=== PATIENT | female | born 1995 | race Caucasian/White ===

== ENCOUNTER 2017-10-08 13:01 | Outpatient (CLI) | payer MEDICAID | END 2017-10-08 15:11 | disposition home or self-care (01) | LOC: M LDO 13:01 | DX: O26.893 Other specified pregnancy related conditions, third trimester (principal); N89.8 Other specified noninflammatory disorders of vagina; O47.1 False labor at or after 37 completed weeks of gestation; Z3A.38 38 weeks gestation of pregnancy | CPT/HCPCS: 76815 ==

== ENCOUNTER 2017-10-13 11:00 | Outpatient (CLI) | payer MEDICAID | END 2017-10-13 13:25 | disposition home or self-care (01) | LOC: M LDO 11:00 | DX: O47.1 False labor at or after 37 completed weeks of gestation (principal); Z3A.38 38 weeks gestation of pregnancy | CPT/HCPCS: 59025 ==

== ENCOUNTER 2017-10-16 07:06 | Inpatient (IN) | payer MEDICAID ==
[2017-10-16] MEDS: miSOPROStol 50 MCG 1/2 TAB (S0191) SL (09:42)
[2017-10-16 10:00] LABS: HEMATOCRIT 31.8 % (36.0-47.0); HEMOGLOBIN 10.7 g/dl (12.0-15.5); MEAN CORPUSCULAR HEMOGLOBIN 34.6 pg (27.0-33.0); MEAN CORPUSCULAR HGB CONC 33.6 g/dl (32.0-36.5); MEAN CORPUSCULAR VOLUME 102.9 fl (80.0-96.0); PLATELET COUNT, AUTOMATED 164 10^3/uL (150-450); RED BLOOD COUNT 3.09 10^6/uL (4.00-5.40); RED CELL DISTRIBUTION WIDTH 15.4 % (11.5-14.5); WHITE BLOOD COUNT 6.2 10^3/uL (4.0-10.0)
[2017-10-16 10:44] LABS: HBSAG L&D NEGATIVE (NEGATIVE)
[2017-10-16] MEDS: LACTATED RINGER'S 1000 ML IV (17:32)
[2017-10-16] MEDS ORDERED: FENTANYL 2MCG/ML ROPIVACAINE 0.2% IN 0.9% NACL 200ML IVBAG As Ordered (18:20)
[2017-10-16] MEDS ORDERED: diphenhydrAMINE INJ 50MG/ML VIAL (J1200) IV (19:30)
[2017-10-16] MEDS ORDERED: ONDANSETRON 4MG/2ML VIAL (J2405) IV (19:30)
[2017-10-16] MEDS ORDERED: LACTATED RINGER'S 1000 ML IV (19:30)
[2017-10-16] MEDS ORDERED: REFRIGERATOR IV KEYS XX (19:30)
[2017-10-16] MEDS ORDERED: FENTANYL/ROPIVACAINE/NACL BAG 200 ML EPIDURAL (19:30)
[2017-10-16] MEDS ORDERED: NALOXONE INJ 0.4 MG/1 ML VIAL (J2310) IV (19:30)
[2017-10-16] MEDS ORDERED: EPIDURAL/PCA KEYS XX (19:30)
[2017-10-16] MEDS ORDERED: EPIDURAL COMMENT XX (19:30)
[2017-10-16] MEDS: LR 1,000 ML IV (20:11)
[2017-10-16] MEDS: OXYTOCIN DRIP 30 UNITS in APPROPRIATE DILUENT 1 EA IV (20:44)
[2017-10-16] MEDS: ePHEDrine SULFATE 25 MG/5 ML(5MG/ML) SYRINGE IV (21:57)
[2017-10-17] MEDS ORDERED: METHYLERGONOVINE MALEATE 0.2 MG TAB PO
[2017-10-17] MEDS ORDERED: MEASLES,MUMPS,RUBELLA VACCINE INJ (MMR-II) (90707) SC
[2017-10-17] MEDS ORDERED: RHOGAM 300 MCG (1500 IU) INJ (J2790) IM
[2017-10-17] MEDS ORDERED: DIBUCAINE 1% OINTMENT 30GM TOP
[2017-10-17] MEDS ORDERED: ONDANSETRON 4MG/2ML VIAL (J2405) IV
[2017-10-17] MEDS ORDERED: DOCUSATE SODIUM 100 MG CAP PO
[2017-10-17] MEDS: OXYTOCIN DRIP 30 UNITS in APPROPRIATE DILUENT 1 EA IV (02:24)
[2017-10-17] MEDS: IBUPROFEN 800 MG TAB PO ×2 (06:38→14:47)
[2017-10-17] MEDS: PRENATAL VITAMINS CHEWABLE TABLET PO (08:35)
[2017-10-17] MEDS: ACETAMINOPHEN 500 MG TAB PO ×2 (08:55→21:06)
[2017-10-18] MEDS: PRENATAL VITAMINS CHEWABLE TABLET PO (07:34)
[2017-10-18] MEDS: ACETAMINOPHEN 500 MG TAB PO (07:34)
== END 2017-10-18 14:30 | disposition home or self-care (01) | DRG 560 ==
LOC: M LDI 07:06 → M OBS 10-17 01:44
PROVIDERS: Specialist
PROC: 10E0XZZ Delivery of Products of Conception, External Approach (ICD-10-PCS; principal; 2017-10-16)
PROC: 3E0DXGC Introduction of Other Therapeutic Substance into Mouth and Pharynx, External Approach (ICD-10-PCS; 2017-10-16)
DX: O69.89X0 Labor and delivery complicated by other cord complications, not applicable or unspecified (principal); Z37.0 Single live birth; Z3A.39 39 weeks gestation of pregnancy

== ENCOUNTER 2018-03-30 07:56 | Emergency (ER) | payer MEDICAID ==
[~2018-03-30] VITALS: Ht 154.9 cm; Wt 45.5 kg
[~2018-03-30 07:56] MED LIST: COLA100C5 PO; FOLI800C PO; MAPA500T2 PO; MOTR200T44 PO; PRENTAB9 PO; VALA500T5 PO
[2018-03-30 07:57] VITALS: BP 115/75
[2018-03-30] MEDS ORDERED: KETOROLAC 30 MG/ML VIAL (J1885) IV ONE (08:15)
[2018-03-30] MEDS ORDERED: METOCLOPRAMIDE INJ 10MG/2ML VIAL (J2765) IV ONE (08:15)
[2018-03-30] MEDS ORDERED: diphenhydrAMINE INJ 50MG/ML VIAL (J1200) IV ONE (08:15)
== END 2018-03-30 09:11 | disposition home or self-care (01) ==
LOC: M ED 07:56
DX: R51 Headache (principal); F32.9 Major depressive disorder, single episode, unspecified; J45.909 Unspecified asthma, uncomplicated; F41.9 Anxiety disorder, unspecified; Z87.891 Personal history of nicotine dependence; Z88.8 Allergy status to other drugs, medicaments and biological substances; Z91.040 Latex allergy status
CPT/HCPCS: 81025; 96374; 96375; 99284; J1200; J1885; J2765